=== PATIENT | female | born 2000 | race Caucasian/White ===

== ENCOUNTER 2021-05-13 09:00 | Emergency (ER) | payer OTHER ==
[~2021-05-13] VITALS: Ht 170.2 cm; Wt 102.1 kg
[~2021-05-13 09:00] MED LIST: CITRATE OF MAG296 ML PO; FLEXERIL PO; IBUPROFEN 800800 MG PO; NAPROSYN500 MG PO; NOHOMEMEDICATIONS
[2021-05-13] MEDS ORDERED: VISTARIL 25 MG25 M1 PO (09:24)
[2021-05-13 09:42] LABS: HEMATOCRIT 37.8 % (37.0-47.0); HEMOGLOBIN 13.1 gm/dL (12.0-15.0); MCH 29.5 pg (26.0-34.0); MCHC 34.5 g/dL (28.0-37.0); MCV 85.5 fL (80.0-100.0); MPV 7.2 fl. (7.2-11.1); RBC 4.43 mil/uL (4.20-5.00); RDW-CV 13.6 % (10.5-14.5); WBC 7.6 thou/uL (4.0-11.0)
[2021-05-13 10:03] LABS: CALCIUM 8.8 mg/dL (8.5-10.1); CREATININE 0.9 mg/dL (0.6-1.3)
[2021-05-13 10:31] LABS: POTASSIUM 4.2 mmol/L (3.5-5.1)
[2021-05-13 12:20] VITALS: BP 140/71
--- NOTE | 2021-05-13 16:46 | EKG ---
[place] [address] ELECTROCARDIOGRAM REPORT Name: MIRIAM SHIPLEY Room: [facility]#: [id number] Admission: 05/13/21 Attend Phys: Discharge: 05/13/21 Date of : [birth year] Date of Service: 05/13/21910 Report #: [id number] THIS REPORT FOR: //name// [facility] ED Test Date: 2021-05-13 Test Time: 09:11:32 Pat Name: MIRIAM SHIPLEY Department: Room: Gender: F Store Receiving Clerk: LEDA : 2000 Requested By: Mike Caicedo Order Number: [id number] MD: Lorenzo Felix Measurements Intervals [place] Rate: 101 P: 27 CO: 144 QRS: 9 QRSD: 88 T: 17 QT: 328 QTc: 426 Interpretive Statements Sinus tachycardia Baseline wander in lead(s) II,III,aVF,V1,V6 No previous ECG available for comparison Electronically Signed On 05-13-2021 16:46:11 CDT by Lorenzo Felix [email or web address] <ELECTRONICALLY SIGNED> By: Lorenzo Felix MD, FACC 05/13/21 1646 0 0 Lorenzo Felix MD, [facility] /EPI
== END 2021-05-13 12:20 | disposition home or self-care (01) ==
LOC: M.ERS 09:00
PROVIDERS: Emergency Medicine Emergency Medical Services
DX: F41.9 Anxiety disorder, unspecified (principal); Z88.5 Allergy status to narcotic agent